=== PATIENT | female | born 1955 | race Caucasian/White ===

== ENCOUNTER 2022-07-22 12:54 | Outpatient (CLI) | payer MEDICARE, BC | END 2022-07-22 12:55 | disposition home or self-care (01) | LOC: CSHCT 12:54 | PROVIDERS: ATTEND Family Medicine | DX: N20.0 Calculus of kidney (principal); E27.8 Other specified disorders of adrenal gland | CPT/HCPCS: 74176 ==

== ENCOUNTER 2022-11-24 07:34 | Outpatient (CLI) | payer MEDICARE, BC ==
[2022-11-24] MEDS ORDERED: Iopamidol 300 61% 100 ML VIAL FS ONE (10:01)
== END 2022-11-24 07:35 | disposition home or self-care (01) ==
LOC: CSHCT 07:34
PROVIDERS: ATTEND Urology
DX: R31.29 Other microscopic hematuria (principal); D35.02 Benign neoplasm of left adrenal gland; D35.01 Benign neoplasm of right adrenal gland; K57.30 Diverticulosis of large intestine without perforation or abscess without bleeding
CPT/HCPCS: 74178; 82565; Q9967

== ENCOUNTER 2023-03-22 11:56 | Outpatient (CLI) | payer MEDICARE, BC | END 2023-03-22 11:57 | disposition home or self-care (01) | LOC: CSHMAMMO 11:56 | PROVIDERS: ATTEND Family Medicine | DX: Z12.31 Encounter for screening mammogram for malignant neoplasm of breast (principal) | CPT/HCPCS: 77063; 77067 ==